=== PATIENT | male | born 1940 | race Caucasian/White ===

== ENCOUNTER → 2017-02-14 | Outpatient (CLI) | payer MEDICARE, BC ==
[~2017-02-14] MED LIST: ALEVE 220MG220 MG PO; ASPIR-LOW81 MG PO; ATENOLOL; AVODART 0.5MG0.5 MG PO; BACTRIM DS 8001 TAB PO; FISH OIL CONC1000 MG PO; FLOMAX; MVI; PERCOCET 5/321 UDTAB PO; PHENERGAN 25 TA25 MG PO; PHENERGAN25 MG RC; VITAMIN C500 MG PO
== END ==
LOC: COL.RAD 13:52
DX: M54.5 Low back pain (principal); Z98.890 Other specified postprocedural states
CPT/HCPCS: A9585

== ENCOUNTER 2017-09-10 11:07 | Inpatient (IN) | payer MEDICARE, BC ==
[~2017-09-10] VITALS: Ht 170.2 cm; Wt 67.5 kg
[~2017-09-10 11:07] MED LIST changes: -ATENOLOL; +DULCOLAX STOOL100 MG PO; -FISH OIL CONC1000 MG PO; +FISH OIL CONCEN1 SG2 PO; +PRAVACHOL10 MG PO; +TENORMIN 5050 MG/TAB PO; +VITAMIN D 1001000 IU PO
[2017-09-10] MEDS ORDERED: LIPITOR 40MG TA40 MG PO (14:13)
[2017-09-10] MEDS ORDERED: DULCOLAX TAB5 MG PO (14:19)
[2017-09-10] MEDS ORDERED: COLACE 100100 MG/CAP PO (16:37)
[2017-09-10] MEDS ORDERED: [UNRECOGNIZED DRUG - OTHER] SQ (16:38)
[2017-09-10] MEDS ORDERED: MELAT3MGTAB PO (16:39)
[2017-09-10] MEDS ORDERED: MILK OF MA1200 MG/5 PO (16:42)
[2017-09-10 16:43] VITALS: BP 126/99; PULSE 73; TEMP 98.3
[2017-09-10] MEDS ORDERED: SENOKOT S 50 MG1 TAB PO (16:43)
[2017-09-11 05:27] VITALS: BP 130/75; PULSE 83; TEMP 97.8
[2017-09-11 14:58] VITALS: BP 122/64; PULSE 62; TEMP 97.8
[2017-09-12 05:50] VITALS: BP 132/76; PULSE 72; TEMP 98.4
[2017-09-12 16:40] VITALS: BP 140/75; PULSE 66; TEMP 98.4
[2017-09-13 05:38] VITALS: BP 133/78; PULSE 91; TEMP 98.6
[2017-09-13 16:15] VITALS: BP 108/39; PULSE 100; TEMP 98
[2017-09-14 06:10] VITALS: BP 129/76; PULSE 89; TEMP 98
[2017-09-14 15:38] VITALS: BP 119/61; PULSE 67; TEMP 97.4
[2017-09-15 04:31] VITALS: BP 162/84; PULSE 73; TEMP 98.6
[2017-09-15 15:12] VITALS: BP 134/71; PULSE 69; TEMP 97.6
[2017-09-16 06:00] VITALS: BP 144/95; PULSE 86; TEMP 98.6
[2017-09-16 17:29] VITALS: BP 126/72; PULSE 79; TEMP 98.7
[2017-09-17 05:41] VITALS: BP 155/85; PULSE 68; TEMP 98.5
[2017-09-17 16:13] VITALS: BP 125/63; PULSE 70; TEMP 98
[2017-09-18 05:26] VITALS: BP 145/68; PULSE 83; TEMP 98.1
[2017-09-18 17:54] VITALS: BP 122/65; PULSE 80; TEMP 97.7
[2017-09-19 06:47] VITALS: BP 127/73; PULSE 81; TEMP 98.2
[2017-09-19 14:00] VITALS: BP 104/65; PULSE 76
[2017-09-19 14:02] VITALS: BP 86/44; PULSE 89
[2017-09-19 16:19] VITALS: BP 140/85; PULSE 67; TEMP 97.4
[2017-09-20 06:00] VITALS: BP 150/81; PULSE 73; TEMP 98
[2017-09-20 18:25] VITALS: BP 110/60; PULSE 77; TEMP 97.6
[2017-09-21 06:00] VITALS: BP 137/69; PULSE 73; TEMP 97.8
[2017-09-21 10:33] VITALS: BP 116/59; PULSE 81; TEMP 97.8
[2017-09-21 15:54] VITALS: BP 109/54; PULSE 71; TEMP 97.6
[2017-09-22 05:26] VITALS: BP 141/82; PULSE 79; TEMP 98.1
[2017-09-22 06:43] LABS: CALCIUM 9.4 mg/dL (8.4-10.2); CREATININE, serum 1.14 mg/dL (0.66-1.25); POTASSIUM 4.2 mmol/L (3.4-5.0)
[2017-09-22 17:21] VITALS: BP 127/76; PULSE 70; TEMP 98.1
[2017-09-23 06:00] VITALS: BP 134/69; PULSE 64; TEMP 97.8
[2017-09-23 15:32] VITALS: BP 112/61; PULSE 74; TEMP 97.9
[2017-09-24 05:00] VITALS: BP 131/87; PULSE 72; TEMP 97.7
[2017-09-24 13:11] LABS: BASO % 0.4 % (0.0-2.0); EOS % 0.6 % (0-4.0); GRAN # 5.5 (1.4-6.5); GRAN % 79.1 % (42.2-75.2); HEMOGLOBIN 14.1 g/dl (13.5-18.0); LYMPH # 0.8 (1.2-3.4); LYMPH % 11.7 % (20.0-51.0); MEAN CELL VOLUME 95 fl (80.0-100.0); MEAN CORPUSCULAR HEMOGLOBIN 32 pg (27.0-31.0); MEAN CORPUSCULAR HGB CONC 34 g/dl (33.0-37.0); MEAN PLATELET VOLUME 10.1 fl (7.4-10.4); MONO # 0.6 (0.1-0.6); MONO % 7.9 % (1.7-9.3); PLATELET COUNT 281 K/mm3 (130-400); RED BLOOD COUNT 4.41 M/mm3 (4.20-5.60); REDCELL DISTRIBUTION WIDTH-CV 13.2 % (11.5-14.5)
[2017-09-24 13:22] LABS: CALCIUM 9.6 mg/dL (8.4-10.2); CREATININE, serum 1.27 mg/dL (0.66-1.25)
[2017-09-24 16:27] VITALS: BP 106/69; PULSE 71; TEMP 97.7
[2017-09-25 05:28] VITALS: BP 141/73; PULSE 82; TEMP 97.9
[2017-09-25 16:42] VITALS: BP 128/74; PULSE 72; TEMP 97.8
[2017-09-26 06:09] VITALS: BP 126/80; PULSE 80; TEMP 98.4
[2017-09-26] MEDS ORDERED: TYLENOL 325MG325 MG PO (08:34)
[2017-09-26] MEDS ORDERED: ZESTRIL 20MG TA20 MG PO (08:34)
== END 2017-09-26 11:45 | disposition home or self-care (01) | DRG 57 ==
PROVIDERS: Family Medicine; Internal Medicine
DX: I69.220 Aphasia following other nontraumatic intracranial hemorrhage (principal); I69.290 Apraxia following other nontraumatic intracranial hemorrhage; I69.293 Ataxia following other nontraumatic intracranial hemorrhage; I69.21 Cognitive deficits following other nontraumatic intracranial hemorrhage; I10 Essential (primary) hypertension; M54.5 Low back pain
CPT/HCPCS: 99222-AI; 99232-AI; 99239; J1644

== ENCOUNTER → 2018-03-17 | Outpatient (CLI) | payer MEDICARE, BC ==
[~2018-03-17] MED LIST changes: +COLACE 100100 MG/CAP PO; +DULCOLAX TAB5 MG PO; +LIPITOR 40MG TA40 MG PO; +MELAT3MGTAB PO; +MILK OF MA1200 MG/5 PO; +SENOKOT S 50 MG1 TAB PO; +TYLENOL 325MG325 MG PO; +ZESTRIL 20MG TA20 MG PO; +[UNRECOGNIZED DRUG - OTHER] SQ
== END ==
LOC: COL.RAD 10:24
DX: G31.9 Degenerative disease of nervous system, unspecified (principal); G93.89 Other specified disorders of brain; I61.9 Nontraumatic intracerebral hemorrhage, unspecified; I67.82 Cerebral ischemia

== ENCOUNTER → 2018-06-19 | Outpatient (CLI) | payer MEDICARE, BC | LOC: COL.RAD 14:30 | DX: I63.9 Cerebral infarction, unspecified (principal) | CPT/HCPCS: Q9967 ==

== ENCOUNTER 2018-07-13 11:40 | Outpatient (CLI) | payer MEDICARE, BC ==
[~2018-07-13] VITALS: Ht 170.2 cm; Wt 70.5 kg
[2018-07-13 12:24] LABS: HEMATOCRIT 43.9 % (42.0-52.0); HEMOGLOBIN 14.6 g/dl (13.5-18.0); MEAN CELL VOLUME 94 fl (80.0-100.0); MEAN CORPUSCULAR HEMOGLOBIN 31 pg (27.0-31.0); MEAN CORPUSCULAR HGB CONC 33 g/dl (33.0-37.0); MEAN PLATELET VOLUME 9.8 fl (7.4-10.4); PLATELET COUNT 224 K/mm3 (130-400); RED BLOOD COUNT 4.65 M/mm3 (4.20-5.60); REDCELL DISTRIBUTION WIDTH-CV 13.1 % (11.5-14.5)
[2018-07-13 12:27] LABS: INR 1.2 (0.8-3.0); PROTHROMBIN TIME 13.9 SECONDS (9.7-12.8)
[2018-07-13] MEDS ORDERED: ASPIRIN 81M81 MG/TA2 PO (12:27)
[2018-07-13 12:29] VITALS: BP 138/76; PULSE 57
[2018-07-13 12:31] VITALS: BP 138/76; PULSE 67
[2018-07-13 12:36] LABS: CALCIUM 9.1 mg/dL (8.4-10.2); CREATININE, serum 1.21 mg/dL (0.66-1.25); POTASSIUM 4.3 mmol/L (3.4-5.0)
[2018-07-13] MEDS ORDERED: CEPHALEXIN500 M1 PO (13:40)
[2018-07-13 14:15] VITALS: BP 126/84; PULSE 71; TEMP 97.6
--- NOTE | 2018-07-13 14:15 | NUR ---
PT IN ROOM 14 POST STEPHANIE AND LOOP RECORDER PLACEMENT. VSS AND AX0X3. DRESSING TO LEFT CHEST IS C/D/I. PT RESTING COMFORTABLY IN BED WITH AT BEDSIDE.
[2018-07-13 14:30] VITALS: BP 116/84; PULSE 69
[2018-07-13 14:45] VITALS: BP 146/81; PULSE 56
--- NOTE | 2018-07-13 14:45 | NUR ---
PT VS UNCHANGED POST PROCEDURE. TOLERATED FLUIDS PO WITHOUT ANY DIFFICULTY. 20G IV REMOVED FROM LEFT AC. DISCHARGE INSTRUCTIONS REVIEWED AND SIGNED. PT WHEELED OUT SAFELY VIA WHEELCHAIR WITH PRESENT [employer]ICE TECHNICIAN.
== END 2018-07-13 14:45 | disposition home or self-care (01) ==
LOC: COL.RAD 11:40
PROVIDERS: Internal Medicine Cardiovascular Disease
DX: I63.9 Cerebral infarction, unspecified (principal); I61.9 Nontraumatic intracerebral hemorrhage, unspecified
CPT/HCPCS: J2704; J7120

== ENCOUNTER 2021-08-24 04:34 | Emergency (ER) | payer MEDICARE, BC ==
[~2021-08-24] VITALS: Ht 180.3 cm; Wt 81.8 kg
[~2021-08-24 04:34] MED LIST changes: +ASPIRIN 81M81 MG/TA2 PO; +CEPHALEXIN500 M1 PO
[2021-08-24 05:16] LABS: BASO % 0.2 % (0.0-2.0); GRAN # 10.7 K/mm3 (1.4-6.5); HEMATOCRIT 43.7 % (42.0-52.0); HEMOGLOBIN 14.8 g/dl (13.5-18.0); LYMPH # 0.2 K/mm3 (1.2-3.4); LYMPH % 1.6 % (20.0-51.0); MEAN CELL VOLUME 92 fl (80.0-100.0); MEAN CORPUSCULAR HEMOGLOBIN 31 pg (27-31); MEAN CORPUSCULAR HGB CONC 34 g/dl (33.0-37.0); MONO # 0.7 K/mm3 (0.1-0.6); PLATELET COUNT 196 K/mm3 (130-400); RED BLOOD COUNT 4.74 M/mm3 (4.20-5.60); REDCELL DISTRIBUTION WIDTH-CV 13.2 % (11.5-14.5)
[2021-08-24 05:32] LABS: ALBUMIN 3.5 gm/dL (3.4-4.8); BILIRUBIN,TOTAL 0.8 mg/dL (0.2-1.2); CALCIUM 8.6 mg/dL (8.4-10.2); CREATININE, serum 1.45 mg/dL (0.72-1.25); POTASSIUM 3.9 mmol/L (3.5-4.5); TOTAL PROTEIN 6.5 gm/dL (6.2-8.1)
[2021-08-24 05:38] LABS: TROPONIN-I 0.011 ng/mL (0.00-0.033)
[2021-08-24 06:12] VITALS: BP 124/60; TEMP 98.4
[2021-08-24 06:54] VITALS: PULSE 91
== END 2021-08-24 06:54 | disposition home or self-care (01) ==
LOC: COL.ER 04:34
PROVIDERS: Student in an Organized Health Care Education/Training Program
DX: E86.0 Dehydration (principal); R19.7 Diarrhea, unspecified
CPT/HCPCS: J7030

== ENCOUNTER → 2021-12-21 | Outpatient (CLI) | payer MEDICARE, BC | LOC: COL.RAD 09:58 | DX: N20.0 Calculus of kidney (principal); N28.1 Cyst of kidney, acquired; M47.816 Spondylosis without myelopathy or radiculopathy, lumbar region; M51.36 Other intervertebral disc degeneration, lumbar region; M41.86 Other forms of scoliosis, lumbar region; K57.30 Diverticulosis of large intestine without perforation or abscess without bleeding | CPT/HCPCS: Q9967 ==